=== PATIENT | female | born 1980 | race Caucasian/White ===

== ENCOUNTER 2016-12-23 19:57 | Emergency (ER) | payer SELFPAY ==
[2016-12-23] MEDS ORDERED: DIAZEPAM 2 MG TABLET PO ONE (20:26)
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
[2016-12-23 20:49] LABS: ABSOLUTE EOSINOPHILS # (AUTO) 0.2 10^3/uL (0.0-0.6); ABSOLUTE LYMPHOCYTES (AUTO) 1.4 10^3/uL (0.5-4.7); ABSOLUTE MONOCYTES (AUTO) 0.6 10^3/uL (0.1-1.4); ABSOLUTE NEUT (AUTO) 5.6 10^3/uL (1.7-8.2); BASOPHILS % (AUTO) 0.2 % (0-2); EOSINOPHILS % (AUTO) 2.3 % (0-6); HEMOGLOBIN 12.8 g/dL (12.0-15.5); HGB HCT DIFFERENCE 0.4; LYMPHOCYTES % (AUTO) 17.6 % (13-45); MEAN CORPUSCULAR HEMOGLOBIN 28.4 pg (27.0-33.4); MEAN CORPUSCULAR HGB CONC 33.8 g/dL (32.0-36.0); MEAN CORPUSCULAR VOLUME 84 fl (80-97); MONOCYTES % (AUTO) 7.3 % (3-13); RED BLOOD COUNT 4.52 10^6/uL (3.72-5.28); RED CELL DISTRIBUTION WIDTH 14.1 % (11.5-14.0); SEGMENTED NEUTROPHILS % (AUTO) 72.6 % (42-78); WHITE BLOOD COUNT 7.7 10^3/uL (4.0-10.5)
[2016-12-23 20:58] LABS: APPEARANCE,URINE CLOUDY; BILIRUBIN,URINE NEGATIVE (NEGATIVE); GLUCOSE, URINE NEGATIVE (NEGATIVE); KETONES,URINE 20 mg/dL (NEGATIVE); LEUKOCYTE ESTERASE,URINE LARGE (NEGATIVE); NITRITE,URINE NEGATIVE (NEGATIVE); PROTEIN,URINE 30 mg/dL (NEGATIVE); URINE SPECIFIC GRAVITY 1.031
[2016-12-23 21:09] LABS: ALANINE AMINOTRANSFERASE 30 U/L (9-52); ALBUMIN 4.3 g/dL (3.5-5.0); ALCOHOL < 10 mg/dL (NONE DETECTED); ALKALINE PHOSPHATASE 76 U/L (38-126); ANION GAP 10 (5-19); ASPARTATE AMINO TRANSFERASE 23 U/L (14-36); BILIRUBIN,DIRECT 0.3 mg/dL (0.0-0.4); BILIRUBIN,TOTAL 0.7 mg/dL (0.2-1.3); BLOOD UREA NITROGEN 10 mg/dL (7-20); CALCIUM 9.2 mg/dL (8.4-10.2); CARBON DIOXIDE 27 mmol/L (22-30); CHLORIDE 103 mmol/L (98-107); CREATININE RESULT 0.78 mg/dL (0.52-1.25); GLUCOSE 119 mg/dL (75-110); POTASSIUM 3.8 mmol/L (3.6-5.0); SODIUM 140.1 mmol/L (137-145); TOTAL PROTEIN 7.6 g/dL (6.3-8.2)
[2016-12-23 21:11] LABS: URINE BARBITURATES SCREEN NEGATIVE; URINE METHADONE SCREEN NEGATIVE; URINE OPIATES LOW UNCONFIRMED POSITIVE; URINE PHENCYCLIDINE SCREEN NEGATIVE
[2016-12-23] MEDS ORDERED: NITROFURANTOIN MONOHYD/M-CRYST 100 MG CAPSULE PO SCH (21:45)
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
[2016-12-24] MEDS ORDERED: ACETAMINOPHEN 325 MG TABLET PO ONE (00:15)
[2016-12-24] MEDS ORDERED: DIAZEPAM 5 MG TABLET PO ONE (02:45)
--- NOTE | 2016-12-24 08:23 | EKG REPORT ---
SEVERITY:- NORMAL ECG - SINUS RHYTHM : Confirmed by: Jose Alba MD 24-Dec-2016 08:22:46
--- NOTE | 2016-12-24 09:53 | ER Document Report ---
Doctor's Note Notes: 12/24/16 09:53 12/24/16 09:54 I reviewed the patient's chart, vital signs, labs and notes from Dr. Montiel. The patient is resting comfortably, is easily arousable and in no distress. Her physical exam is unremarkable. We are waiting psychiatry for her worsening anxiety and substance abuse. She denies any suicidal ideations. Patient is stable for outpatient management.
[2016-12-24 11:45] VITALS: BP 128/73
== END 2016-12-24 11:44 | disposition home or self-care (01) ==
LOC: ER 19:57
DX: N39.0 Urinary tract infection, site not specified (principal); F41.9 Anxiety disorder, unspecified; F19.10 Other psychoactive substance abuse, uncomplicated; R33.9 Retention of urine, unspecified; M54.9 Dorsalgia, unspecified
CPT/HCPCS: 93005; 99284; 36415; 80307 ×4; 85025; 80053; 81001; 93010; J3490; J8499

== ENCOUNTER 2018-03-24 16:48 | Emergency (ER) | payer SELFPAY ==
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
[2018-03-24] MEDS ORDERED: OLANZAPINE 5 MG TAB.RAPDIS PO ONE (17:13)
[2018-03-24] MEDS ORDERED: BENZTROPINE MESYLATE 1 MG TABLET PO ONE (17:14)
[2018-03-24 18:11] LABS: ABSOLUTE BASOPHILS # (AUTO) 0.1 10^3/uL (0.0-0.2); ABSOLUTE EOSINOPHILS # (AUTO) 0.2 10^3/uL (0.0-0.6); ABSOLUTE LYMPHOCYTES (AUTO) 2.5 10^3/uL (0.5-4.7); ABSOLUTE MONOCYTES (AUTO) 0.7 10^3/uL (0.1-1.4); ABSOLUTE NEUT (AUTO) 5.7 10^3/uL (1.7-8.2); BASOPHILS % (AUTO) 1.2 % (0-2); EOSINOPHILS % (AUTO) 1.9 % (0-6); HEMOGLOBIN 12.4 g/dL (12.0-15.5); LYMPHOCYTES % (AUTO) 26.9 % (13-45); MEAN CORPUSCULAR HEMOGLOBIN 27.7 pg (27.0-33.4); MEAN CORPUSCULAR HGB CONC 34.4 g/dL (32.0-36.0); MEAN CORPUSCULAR VOLUME 80 fl (80-97); MONOCYTES % (AUTO) 7.7 % (3-13); PLATELET COUNT 356 10^3/uL (150-450); RED BLOOD COUNT 4.47 10^6/uL (3.72-5.28); RED CELL DISTRIBUTION WIDTH 15.7 % (11.5-14.0); SEGMENTED NEUTROPHILS % (AUTO) 62.3 % (42-78); TOTAL CELLS COUNTED % (AUTO) 100 %; WHITE BLOOD COUNT 9.1 10^3/uL (4.0-10.5)
[2018-03-24 18:22] LABS: ALANINE AMINOTRANSFERASE 20 U/L (9-52); ALBUMIN 4.3 g/dL (3.5-5.0); ALKALINE PHOSPHATASE 80 U/L (38-126); ANION GAP 12 (5-19); ASPARTATE AMINO TRANSFERASE 18 U/L (14-36); BILIRUBIN,DIRECT 0.1 mg/dL (0.0-0.4); BILIRUBIN,TOTAL 0.5 mg/dL (0.2-1.3); BLOOD UREA NITROGEN 11 mg/dL (7-20); CARBON DIOXIDE 26 mmol/L (22-30); CHLORIDE 103 mmol/L (98-107); GLUCOSE 81 mg/dL (75-110); POTASSIUM 4.2 mmol/L (3.6-5.0); SODIUM 140.8 mmol/L (137-145); TOTAL PROTEIN 7.5 g/dL (6.3-8.2)
[2018-03-24 18:32] LABS: ACETAMINOPHEN < 10 ug/mL (10-30); ALCOHOL < 10 mg/dL (NONE DETECTED); SALICYLATE < 1.0 mg/dL (2.0-20.0)
[2018-03-24 19:00] LABS: APPEARANCE,URINE SLIGHTLY-CLOUDY; BILIRUBIN,URINE NEGATIVE (NEGATIVE); COLOR,URINE YELLOW; GLUCOSE, URINE NEGATIVE (NEGATIVE); KETONES,URINE NEGATIVE (NEGATIVE); LEUKOCYTE ESTERASE,URINE NEGATIVE (NEGATIVE); NITRITE,URINE NEGATIVE (NEGATIVE); PROTEIN,URINE NEGATIVE (NEGATIVE); URINE SPECIFIC GRAVITY 1.016; UROBILINOGEN,URINE NEGATIVE mg/dL (<2.0)
--- NOTE | 2018-03-24 19:08 | EKG REPORT ---
SEVERITY:- NORMAL ECG - SINUS RHYTHM : Confirmed by: Felicia Pittman MD 24-Mar-2018 19:07:41
[2018-03-24 19:16] LABS: URINE BARBITURATES SCREEN NEGATIVE; URINE BENZODIAZEPINES SCREEN NEGATIVE; URINE COCAINE SCREEN NEGATIVE; URINE METHADONE SCREEN NEGATIVE; URINE PHENCYCLIDINE SCREEN NEGATIVE
[2018-03-24 19:30] LABS: URINE MARIJUANA (THC) SCREEN UNCONFIRMED POSITIVE
[2018-03-25] MEDS ORDERED: HALOPERIDOL LACTATE INJ 5 MG/1 ML VIAL IM ONE (11:04)
[2018-03-25] MEDS ORDERED: CLONIDINE HCL 0.1 MG TABLET PO PRN (11:05)
--- NOTE | 2018-03-25 11:32 | ER Document Report ---
Doctor's Note Notes: 03/25/18 11:29 Rounds: Chart reviewed and patient interviewed. Patient is being evaluated for manic psychosis with erratic behavior. Was walking with traffic, making references to Ross and jainism, hearing voices. Patient says she has a history of ADHD, but no history of adult psychotic disorder. Vital signs were normal with exception of a blood pressure 97/62. Lab studies were normal except for a positive marijuana on her drug screen. Patient continues to talk rather extensively and multiple references to jainism and Ross. Patient appears to be medically stable for transfer or discharge. Luis A Franklin MD
[2018-03-25] MEDS: BENZTROPINE MESYLATE 1 MG TABLET PO SCH ×2 (11:52→18:44)
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
[2018-03-25] MEDS ORDERED: IBUPROFEN 600 MG TABLET PO ONE (23:28)
[2018-03-26 08:13] VITALS: BP 104/62
[2018-03-26] MEDS: BENZTROPINE MESYLATE 1 MG TABLET PO SCH (09:03)
--- NOTE | 2018-03-26 10:14 | ER Document Report ---
Doctor's Note Notes: 03/26/18 10:08 Rounds: Chart reviewed and patient interviewed. Patient is doing a lot better than yesterday. Much less talkative and calm interactions. Vital signs are all essentially normal. No new lab studies. Only abnormal labs were as the patient's drug screen was positive for marijuana and likely amphetamines. Patient appears to be medically stable for transfer or discharge. Luis A Franklin MD
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
== END 2018-03-26 13:47 | disposition home or self-care (01) ==
LOC: ER 16:48
DX: F30.2 Manic episode, severe with psychotic symptoms (principal); F19.10 Other psychoactive substance abuse, uncomplicated; F41.9 Anxiety disorder, unspecified; F17.210 Nicotine dependence, cigarettes, uncomplicated
CPT/HCPCS: 93005; 99285; 96372; 36415; 80307 ×4; 84703; 85025; 80053; 81001; 93010; J3490; J1630

== ENCOUNTER 2019-02-10 23:19 | Emergency (ER) | payer SELFPAY ==
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
[2019-02-11] MEDS ORDERED: ACETAMINOPHEN 325 MG TABLET PO ONE (03:52)
[2019-02-11] MEDS ORDERED: CEPHALEXIN 500 MG CAPSULE PO ONE (05:03)
--- NOTE | 2019-02-11 05:07 | ER Document Report ---
HPI - HPI Patient complains to provider of: Right foot pain Time Seen by Provider: 02/11/19 04:25 Pain Level: 4 Context: Patient is a 38-year-old female presents to the emergency department for pain in the dorsal aspect of her right distal foot. Patient [place] she was accidentally [place] in the right foot. States she initially was seen and treated at an outside hospital. States for the last 2 days she is noticed redness and swelling around where 1 of the "BBs" was. Patient's denying any fevers, any recent or new injuries to her right lower extremity. - REPRODUCTIVE Reproductive: DENIES: : - DERM Skin Color: Normal, [place] Past Medical History - General Information source: Patient - Social History Smoking Status: Current Every Day Smoker Frequency of alcohol use: Occasional Family History: Arthritis, DM, Malignancy Patient has suicidal ideation: No Patient has homicidal ideation: No Renal/ Medical History: Denies: Hx Peritoneal Dialysis Musculoskeletal Medical History: Reports Hx Musculoskeletal Trauma Psychiatric Medical History: Reports: Hx Depression Past Surgical History: Reports: Hx Cholecystectomy - 2003, Hx Tubal Ligation - Immunizations Hx Diphtheria, Pertussis, Tetanus Vaccination: Yes Vertical Provider Document - CONSTITUTIONAL Agree With Documented VS: Yes Notes: GENERAL: Alert, interacts well. No acute distress. HEAD: Normocephalic, atraumatic. EYES: Pupils equal, round, and reactive to light. Extraocular movements intact. ENT: Oral mucosa moist, tongue midline. NECK: Full range of motion. Supple. Trachea midline. LUNGS: Clear to auscultation bilaterally, no wheezes, rales, or rhonchi. No respiratory distress. HEART: Regular rate and rhythm. No murmur ABDOMEN: Soft, non-tender. Non-distended. Bowel sounds present in all 4 quadrants. EXTREMITIES: Moves all 4 extremities spontaneously. normal radial and dorsalis pedis pulses bilaterally. No cyanosis. BACK: no cervical, thoracic, lumbar midline tenderness. No saddle anesthesia, normal distal neurovascular exam. NEUROLOGICAL: Alert and oriented x3. Normal speech. cranial nerves II through XII grossly intact PSYCH: Normal affect, normal mood. SKIN: Warm, dry, normal turgor. Slight swelling and erythema noted to the distal dorsal aspect at the base of the middle right toe. Obvious hard foreign body felt underneath erythema. Capillary refill less than 2 seconds distally all toes right foot. No fluctuance noted. - INFECTION CONTROL TRAVEL OUTSIDE OF THE [place] IN LAST 30 DAYS: No Course - Re-evaluation Re-evalutation: 02/11/19 05:05 Discussed with patient use of antibiotics to prevent infection. Discussed close follow-up with orthopedics. At this time will discharge with return precautions and follow-up recommendations. Verbal discharge instructions given a the bedside and opportunity for questions given. Medication warnings reviewed. Patient is in agreement with this plan and has verbalized understanding of return precautions and the need for primary care follow-up in the next 24-72 hours. This medical record was dictated with voice recognizing software. There may be grammatical, syntax errors that are unintended. - Vital Signs Vital signs: Temp Pulse Resp BP Pulse Ox 98.1 F 93 14 142/77 H 98 02/10/19 23:32 02/10/19 23:32 02/10/19 23:32 02/10/19 23:32 02/10/19 23:32 Discharge - Discharge Clinical Impression: Foreign body (FB) in soft tissue Foot pain Qualifiers: Laterality: right Qualified Code(s): M79.671 - Pain in right foot Cellulitis Qualifiers: Site of cellulitis: extremity Site of cellulitis of extremity: lower extremity Laterality: right Qualified Code(s): L03.115 - Cellulitis of right lower limb Condition: Stable Disposition: HOME, SELF-CARE Instructions: Cellulitis ([facility]), Foreign Body ([facility]) Additional Instructions: As we discussed you have been seen and treated in the emergency department for a potential BB stuck in your right foot. Please take antibiotics as prescribed. Please note that your skin may retract to this BB and it may expel itself. Please follow-up with orthopedics, phone numbers will be provided. Please return to the emergency room for any concerns. Prescriptions: Cephalexin Monohydrate [Keflex 500 mg Capsule] 500 mg PO BID 7 Days #14 capsule Referrals: BERNA GARCIA JR, DO [ACTIVE PROVISIONAL STAFF] - Follow up as needed
[2019-02-11 06:46] VITALS: BP 125/78
== END 2019-02-11 05:25 | disposition home or self-care (01) ==
LOC: ER 23:19
DX: M79.5 Residual foreign body in soft tissue (principal); L03.115 Cellulitis of right lower limb; M79.671 Pain in right foot; F17.200 Nicotine dependence, unspecified, uncomplicated
CPT/HCPCS: 99283